=== PATIENT | male | born 1980 | race Two or more races ===

== ENCOUNTER 2020-06-04 17:55 | Inpatient (IN) | payer OTHER ==
--- NOTE | 2020-06-04 21:02 | HP ---
COWS - Scale Resting Pulse: 0= [place] 80 or Below Sweatin=Flushed/Facial Moisture (Increased facial moisture) Restless Observation: 1= Difficult to Sit Still Pupil Size: 2= Moderately Dilated (Pupils = 4 mm) Bone or Joint Aches: 0= None Runny Nose/ Eye Tearin= Nasal Congestion GI Upset > 30mins: 2= Nausea/Diarrhea Tremor Observation: 2= Slight Tremor Visible Yawning Observation: 0= None Anxiety or Irritability: 2=Irritable/Anxious Goose Flesh Skin: 0=Smooth Skin COWS Score: 12 CIWA Score Nausea/Vomitin Muscle Tremors: 4-Moderate,w/Arms Extend Anxiety: 3 Agitation: 3 Paroxysmal Sweats: 3 (Increased facial moisture) Orientation: 0-Oriented Tacttile Disturbances: 0-None Auditory Disturbances: 0-None Visual Disturbances: 0-None Headache: 0-None Present CIWA-Ar Total Score: 16 - Admission Criteria OASAS Guidelines: Admission for Medically Managed Detox: Requires at least one of the followin. CIWA greater than 12 2. Seizures within the past 24 hours 3. Delirium tremens within the past 24 hours 4. Hallucinations within the past 24 hours 5. Acute intervention needed for co occurring medical disorder 6. Acute intervention needed for co occurring psychiatric disorder 7. Severe withdrawal that cannot be handled at a lower level of care (continued vomiting, continued diarrhea, abnormal vital signs) requiring intravenous medication and/or fluids 8. Patient presents the following: CIWA greater than 12 Admission Criteria Met: Admission criteria met Admitting History and Physical - Smoking History Smoking history: Current every day smoker Have you smoked in the past 12 months: Yes Aproximately how many cigarettes per day: 2 Admission ROS S - HPI Chief Complaint: Here because I need detox because I relapsed. I need to stop Allergies/Adverse Reactions: Allergies Allergy/AdvReac Type Severity Reaction Status Date / Time No Known Allergies Allergy Verified 06/04/20 21:14 History of Present Illness: 39 yo here with opioid and alcohol withdrawal symptoms seeking detox. States relapsed on 2 months ago. DONNA: 0.0 UTox: + THC/ESTHER/FLY/MOR/MTD/BZO/BUP Denies hx seizures, overdoses or blackouts. Alcohol use began at age 15. Currently drinking 3- 4 32 oz beers. States re lapsed on 2 months ago. Cocaine use began at age 15. Currently using $40/day. States relapsed on 2 months ago. Benzo use began at age 15. Xanax 4- 2mg sticks/5-6x/week. States relapsed on 2 months ago. Opioid use began at age 15. States 15 -20 bags/day IV. Denies sharing needles or works. Stopped for 18 months and relapsed 2 months ago. States took "a little piece" of Suboxone - 3 days ago. Denies known methadone use. Has a Narcan kit. Marijuana use began at age 15. Uses $20/day. Nicotine use began at age 15. Smokes 10/day. PMHx: DM -resolved x 4 years; Hep C MHHx: Depression. Denies thoughts of harming self or others. Does not see a MH provider. Denies current psychiatric meds. SHx: Undomiciled. Unemployed. Denies legal issues Patient Name: Meliton Omer Date: 1980 Address: [place] [address] Sex: Male Rx Written Rx Dispensed Drug Quantity Days Supply Prescriber Name Payment Method Dispenser 05/26/2020 05/27/2020 lorazepam 2 mg tablet 8 2 Alan Elliott (MIRIAN) Medicaid [facility], [facility] Exam Limitations: No Limitations - Ebola screening Have you traveled outside of the country in the last 21 days: No (Denies known COVID exposure) Have you had contact with anyone from an Ebola affected area: No Have you been sick,other than usual withdrawal symptoms: No Do you have a fever: No - Review of Systems Constitutional: Chills, Diaphoresis, Changes in sleep (Difficulty falling asleep), Weight Stable EENT: reports: Nose Congestion Respiratory: reports: No Symptoms reported Cardiac: reports: No Symptoms Reported GI: reports: Diarrhea (States 2 watery brownish BM's earlier), Nausea : reports: No Symptoms Reported Musculoskeletal: reports: No Symptoms Reported, Joint Pain ((R) knee pain x 2 days. Denies fall or injury) Integumentary: reports: No Symptoms Reported Neuro: reports: No Symptoms reported Endocrine: reports: No Symptoms Reported Hematology: reports: No Symptoms Reported Psychiatric: reports: Judgement Intact, Agitated, Anxious, Depressed ( Denies thoughts of harming self or others.) Patient History - Patient Medical History Hx Asthma: No Hx Chronic Obstructive Pulmonary Disease (COPD): No Hx Cardiac Disorders: No Hx Hypertension: No Hx Seizures: No Hx Diabetes: Yes (Type II) Hx Gastrointestinal Disorders: No Hx Genitourinary Disorders: No Hx Sexually Transmitted Disorders: No Hx Renal Disease (ESRD): No Hx Depression: Yes (on meds) Hx Suicide Attempt: No Hx Schizophrenia: No - Patient Surgical History Past Surgical History: Yes Hx Neurologic Surgery: No Hx Cataract Extraction: No Hx Cardiac Surgery: No Hx Lung Surgery: No Hx Breast Surgery: No Hx Breast Biopsy: No Hx Abdominal Surgery: No Hx Appendectomy: Yes (1993) Hx Cholecystectomy: No Hx Genitourinary Surgery: No Hx Section: No Hx Orthopedic Surgery: No Anesthesia Reaction: No - PPD History Previous Implant?: Yes Documented Results: Negative w/proof Implanted On Prior [facility] Admission?: Yes Date: 05/02/12 PPD to be Administered?: Yes - Smoking Cessation Smoking history: Current every day smoker Have you smoked in the past 12 months: Yes Aproximately how many cigarettes per day: 10 Hx Chewing Tobacco Use: No Initiated information on smoking cessation: Yes 'Breaking Loose' booklet given: 06/04/20 - Substance & Tx. History Hx Alcohol Use: Yes Hx Substance Use: Yes Substance Use Type: Alcohol, Cocaine, Heroin, Marijuana, Opiates Hx Substance Use Treatment: Yes (detox, ) Admission Physical Exam [facility] - Physical General Appearance: Yes: Nourished, Mild Distress, Tremorous, Sweating (Increased facial moisture), Anxious HEENTM: Yes: EOMI, Hearing grossly Normal, Normocephalic, Normal Voice, FER ( Pupils = 4 mm), Pharynx Normal, Nasal Congestion Respiratory: Yes: Lungs Clear (Pulse Ox = 99%), Normal Breath Sounds, No Respiratory Distress Neck: Yes: No masses,lesions,Nodules, Supple Breast: Yes: Breast Exam Deferred Cardiology: Yes: Regular Rhythm, Regular Rate (HR: 66), S1, S2 Abdominal: Yes: Non Tender, Flat, Soft, Increased Bowel Sounds Genitourinary: Yes: Within Normal Limits Back: Yes: Normal Inspection Musculoskeletal: Yes: full range of Motion, Gait Steady, Other (Tenderness (R) knee w/ palpatation. No increased warmth or erythema. FROM.) Extremities: Yes: Normal Capillary Refill, Normal Range of Motion, Tremors Neurological: Yes: windows desktop engineer II-XII NML intact, Fully Oriented, Alert, Motor Strength 5/5, Normal Response Integumentary: Yes: Normal Color, Warm, Moist (Increased facial moisture) Lymphatic: Yes: Within Normal Limits - Diagnostic (1) Alcohol dependence with withdrawal, uncomplicated Current Visit: Yes Status: Acute (2) Opioid dependence with withdrawal Current Visit: Yes Status: Acute (3) Sedative, hypnotic or anxiolytic dependence with withdrawal, uncomplicated Current Visit: Yes Status: Acute (4) Cocaine dependence, uncomplicated Current Visit: Yes Status: Chronic (5) Knee pain, right Current Visit: Yes Status: Acute Qualifiers: Chronicity: acute Qualified Code(s): M25.561 - Pain in right knee (6) History of diabetes mellitus Current Visit: Yes Status: Resolved (7) Nicotine dependence, unspecified, uncomplicated Current Visit: Yes Status: Chronic Qualifiers: Nicotine product type: cigarettes Qualified Code(s): F17.210 - Nicotine dependence, cigarettes, uncomplicated Cleared for Admission [facility] - Detox or Rehab [facility] Level of Care: Medically Managed Detox Regimen/Protocol: Methadone/Valium Claeared for Rehab Admission: No Inpatient Rehab Admission - Rehab Decision to Admit Inpatient rehab admission?: No
[2020-06-04 21:31] VITALS: BMI 25.7
[2020-06-04] MEDS ORDERED: cloNIDine HCL 0.1 MG TABLET PO PRN (21:33)
[2020-06-04] MEDS ORDERED: MAG HYDROX/AL HYDROX/SIMETH 30 ML UNIT-DOSE CUP PO PRN (21:33)
[2020-06-04] MEDS ORDERED: ONDANSETRON *ODT* 4 MG TABLET SL ONE (21:33)
[2020-06-04] MEDS ORDERED: MAGNESIUM CITRATE 300 ML BOTTLE PO PRN (21:33)
[2020-06-04] MEDS ORDERED: METHADONE HCL 10 MG TABLET (FOR DETOX USE ONLY) PO ONE (21:33)
[2020-06-04] MEDS ORDERED: NICOTINE POLACRILEX 2 MG GUM BUC PRN (21:33)
[2020-06-04] MEDS ORDERED: BISMUTH SUBSALICYLATE 524 MG/30 ML UD PO PRN (21:33)
[2020-06-04] MEDS ORDERED: MAGNESIUM HYDROX 2400MG/30ML ORAL SUSPENSION 30 ML CUP PO PRN (21:33)
[2020-06-04] MEDS ORDERED: MENTHOL/PHENOL 1 EACH UD MM PRN (21:33)
[2020-06-04] MEDS ORDERED: ACETAMINOPHEN 325 MG TABLET (FP) PO PRN ×2 (21:33)
[2020-06-04] MEDS: diazePAM 5 MG TABLET PO SCH (22:36)
[2020-06-04] MEDS: MELATONIN 5 MG TABLETS PO SCH (22:37)
[2020-06-04] MEDS: METHOCARBAMOL 500 MG TABLET PO PRN (22:37)
[2020-06-04] MEDS: THIAMINE HCL 100 MG TABLET (FP) PO SCH (22:44)
[2020-06-05] MEDS: diazePAM 5 MG TABLET PO SCH ×3 (05:34→22:39)
--- NOTE | 2020-06-05 09:09 | EKG ---
Test Reason : Blood Pressure : / mmHG Vent. Rate : 057 BPM Atrial Rate : 057 BPM P-R Int : 142 ms QRS Dur : 106 ms QT Int : 412 ms P-R-T Axes : 061 022 007 degrees QTc Int : 401 ms SINUS BRADYCARDIA OTHERWISE NORMAL ECG NO PREVIOUS ECGS AVAILABLE Confirmed by Sin Villagomez MD ([id number]) on 06/05/2020 9:08:59 AM Referred By: Confirmed By:Sin Villagomez MD
[2020-06-05] MEDS ORDERED: METHADONE (DETOX) 20 MG, METHADONE (DETOX) 5 MG PO ONE (10:00)
[2020-06-05] MEDS ORDERED: METHADONE HCL 10 MG TABLET (FOR DETOX USE ONLY) ONE (10:01)
[2020-06-05] MEDS ORDERED: METHADONE HCL 5 MG TABLET (FOR DETOX USE ONLY) ONE (10:02)
[2020-06-05] MEDS: NICOTINE 14 MG/24 HOURS TOPICAL PATCH TD SCH (10:39)
[2020-06-05] MEDS: PRENATAL VITAMINS W/ FOLIC ACID TABLET (FP) PO SCH (10:39)
[2020-06-05] MEDS: METHOCARBAMOL 500 MG TABLET PO PRN ×2 (10:41→22:39)
[2020-06-05] MEDS: IBUPROFEN 400 MG TABLET (FP) PO PRN ×2 (10:41→22:39)
[2020-06-05 13:04] LABS: HEMATOCRIT 41.5 % (35.4-49); MCH 31.4 pg (25.7-33.7); MCHC 33.7 g/dl (32.0-35.9); MEAN CELL VOLUME 93.4 fl (80-96); MEAN PLT VOLUME 10.1 fl (7.5-11.1); PLATELET COUNT 212 K/MM3 (134-434); RBC 4.45 M/mm3 (4.00-5.60); RDW 13.9 % (11.9-15.9); WHITE BLOOD COUNT 7.1 K/mm3 (4.0-10.0)
[2020-06-05 13:08] LABS: ALBUMIN 3.8 g/dl (3.4-5.0); BILIRUBIN,TOTAL 0.6 mg/dL (0.2-1); CALCIUM 8.9 mg/dL (8.5-10.1); POTASSIUM 4.4 mmol/L (3.5-5.1); TOT PROT 7.7 g/dl (6.4-8.2)
--- NOTE | 2020-06-05 15:22 | PN ---
[facility] CIWA - CIWA Score Nausea/Vomitin-No Nausea/No Vomiting Muscle Tremors: 2 Anxiety: 4-Mod. Anxious/Guarded Agitation: 3 Paroxysmal Sweats: 2 Orientation: 0-Oriented Tacttile Disturbances: 0-None Auditory Disturbances: 0-None Visual Disturbances: 0-None Headache: 0-None Present CIWA-Ar Total Score: 11 S COWS - Scale Resting Pulse: 0= [place] 80 or Below Sweatin= No chills or Flushing Restless Observation: 0= Sits Still Pupil Size: 1= Pupils >than Normal Bone or Joint Aches: 1= Mild Discomfort Runny Nose/ Eye Tearin= None GI Upset > 30mins: 2= Nausea/Diarrhea Tremor Observation of Outstretched Hands: 2= Slight Tremor Visible Yawning Observation: 0= None Anxiety or Irritability: 2=Irritable/Anxious Goose Flesh Skin: 3=Piloerection COWS Score: 11 [facility] Progress Note (SOAP) Subjective: 39 years old male was admitted on 06/04/20 for alcohol banzo and opiate withdrawal sx management treating with valium and methadone detox regiment reports trouble sleep at night restlessness at night anxiousness in the dark belsomra 10 mg po x 1 Objective: 06/05/20 15:22 Vital Signs - 24 hr 06/04/20 06/04/20 06/05/20 21:17 22:30 06:20 Temperature 97.1 F L 96.9 F L 97.4 F L Pulse Rate 74 70 73 Respiratory 18 18 16 Rate Blood Pressure 129/73 121/76 99/61 O2 Sat by Pulse 99 97 Oximetry (%) 06/05/20 09:10 Temperature 99.0 F Pulse Rate 58 L Respiratory 16 Rate Blood Pressure 112/59 L O2 Sat by Pulse 97 Oximetry (%) Laboratory Tests 06/05/20 06/05/20 08:30 08:30 WBC 7.1 RBC 4.45 Hgb 14.0 Hct 41.5 MCV 93.4 MCH 31.4 MCHC 33.7 RDW 13.9 Plt Count 212 MPV 10.1 Sodium 143 Potassium 4.4 Chloride 105 Carbon Dioxide 31 Anion Gap 7 L BUN 22.0 H Creatinine 1.0 Est GFR (CKD-EPI)AfAm 108.63 Est GFR (CKD-EPI)NonAf 93.73 Random Glucose 81 Calcium 8.9 Total Bilirubin 0.6 AST 37 ALT 61 Alkaline Phosphatase 68 Total Protein 7.7 Albumin 3.8 covid pending Assessment: 06/05/20 15:23 alcohol benzo opiate withdrawal Plan: valium and methadone regiments
[2020-06-05] MEDS ORDERED: MASKS NR ONE (19:13)
[2020-06-05] MEDS ORDERED: SUVOREXANT 10 MG TABLET PO ONE (22:00)
[2020-06-05] MEDS: THIAMINE HCL 100 MG TABLET (FP) PO SCH (22:39)
[2020-06-05] MEDS: MELATONIN 5 MG TABLETS PO SCH (22:39)
[2020-06-06] MEDS: diazePAM 5 MG TABLET PO SCH ×2 (06:44→17:46)
[2020-06-06] MEDS: METHOCARBAMOL 500 MG TABLET PO PRN ×3 (09:23→23:03)
[2020-06-06] MEDS: diazePAM 5 MG TABLET PO PRN ×2 (09:23→23:04)
[2020-06-06] MEDS: IBUPROFEN 400 MG TABLET (FP) PO PRN ×2 (09:24→23:03)
[2020-06-06] MEDS: NICOTINE 14 MG/24 HOURS TOPICAL PATCH TD SCH (09:24)
[2020-06-06] MEDS: PRENATAL VITAMINS W/ FOLIC ACID TABLET (FP) PO SCH (09:25)
[2020-06-06] MEDS ORDERED: METHADONE HCL 10 MG TABLET (FOR DETOX USE ONLY) PO ONE (10:00)
--- NOTE | 2020-06-06 12:28 | PN ---
[facility] CIWA - CIWA Score Nausea/Vomitin-No Nausea/No Vomiting Muscle Tremors: 3 Anxiety: 2 Agitation: 1-Slight > Activity Paroxysmal Sweats: 1-Minimal Palms Moist Orientation: 0-Oriented Tacttile Disturbances: 0-None Auditory Disturbances: 0-None Visual Disturbances: 0-None Headache: 2-Mild CIWA-Ar Total Score: 9 S COWS - Scale Resting Pulse: 0= [place] 80 or Below Sweatin= Chills/Flushing Restless Observation: 0= Sits Still Pupil Size: 1= Pupils >than Normal Bone or Joint Aches: 1= Mild Discomfort Runny Nose/ Eye Tearin= None GI Upset > 30mins: 2= Nausea/Diarrhea Tremor Observation of Outstretched Hands: 2= Slight Tremor Visible Yawning Observation: 0= None Anxiety or Irritability: 2=Irritable/Anxious Goose Flesh Skin: 0=Smooth Skin COWS Score: 9 S Progress Note (SOAP) Subjective: 39 years old male was admitted on 06/04/20 for alcohol benzo opiate withdrawal sx management treating with valium and methadone detox regiments 6 am valium hold due to low bp encourage mr kuo drinking fluid and ambulating on hallway mr kuo received clonidine around 0930am discontinue clonidine at this time Objective: 06/06/20 12:28 Vital Signs - 24 hr 06/05/20 06/06/20 06/06/20 17:03 05:49 09:22 Temperature 97.1 F L 97.1 F L 97.1 F L Pulse Rate 60 47 L 65 Respiratory 18 20 18 Rate Blood Pressure 111/66 84/46 L 121/77 O2 Sat by Pulse 98 Oximetry (%) Laboratory Tests 06/05/20 06/05/20 06/05/20 04:07 08:30 08:30 WBC 7.1 RBC 4.45 Hgb 14.0 Hct 41.5 MCV 93.4 MCH 31.4 MCHC 33.7 RDW 13.9 Plt Count 212 MPV 10.1 Sodium 143 Potassium 4.4 Chloride 105 Carbon Dioxide 31 Anion Gap 7 L BUN 22.0 H Creatinine 1.0 Est GFR (CKD-EPI)AfAm 108.63 Est GFR (CKD-EPI)NonAf 93.73 Random Glucose 81 Calcium 8.9 Total Bilirubin 0.6 AST 37 ALT 61 Alkaline Phosphatase 68 Total Protein 7.7 Albumin 3.8 Syphilis Serology COVID-19 (LAURA) Not detected 06/05/20 08:30 WBC RBC Hgb Hct MCV MCH MCHC RDW Plt Count MPV Sodium Potassium Chloride Carbon Dioxide Anion Gap BUN Creatinine Est GFR (CKD-EPI)AfAm Est GFR (CKD-EPI)NonAf Random Glucose Calcium Total Bilirubin AST ALT Alkaline Phosphatase Total Protein Albumin Syphilis Serology Non-reactive COVID-19 (LAURA) covid pending Assessment: 06/06/20 12:29 alcohol benzo opiate withdrawal Plan: valium and methadone regiments
[2020-06-06] MEDS: MELATONIN 5 MG TABLETS PO SCH (23:04)
[2020-06-06] MEDS: THIAMINE HCL 100 MG TABLET (FP) PO SCH (23:04)
[2020-06-07] MEDS ORDERED: diazePAM 5 MG TABLET PO ONE (06:00)
[2020-06-07] MEDS ORDERED: METHADONE HCL 5 MG TABLET (FOR DETOX USE ONLY) ONE (09:15)
[2020-06-07] MEDS ORDERED: METHADONE HCL 10 MG TABLET (FOR DETOX USE ONLY) ONE (09:15)
[2020-06-07] MEDS: diazePAM 5 MG TABLET PO PRN ×2 (09:35→18:43)
[2020-06-07] MEDS: NICOTINE 14 MG/24 HOURS TOPICAL PATCH TD SCH (09:36)
[2020-06-07] MEDS: PRENATAL VITAMINS W/ FOLIC ACID TABLET (FP) PO SCH (09:36)
[2020-06-07] MEDS ORDERED: METHADONE (DETOX) 10 MG, METHADONE (DETOX) 5 MG PO ONE (10:00)
--- NOTE | 2020-06-07 11:44 | PN ---
S CIWA - CIWA Score Nausea/Vomitin-Mild Nausea/No Vomiting Muscle Tremors: 1-None Visible, but Stanley Anxiety: 3 Agitation: 0-Normal Activity Paroxysmal Sweats: No Perspiration Orientation: 0-Oriented Tacttile Disturbances: 0-None Auditory Disturbances: 0-None Visual Disturbances: 1-Very Mild Sensitivity Headache: 0-None Present CIWA-Ar Total Score: 6 [facility] COWS - Scale Resting Pulse: 0= [place] 80 or Below Sweatin= Chills/Flushing Restless Observation: 0= Sits Still Pupil Size: 1= Pupils >than Normal Bone or Joint Aches: 1= Mild Discomfort Runny Nose/ Eye Tearin= None GI Upset > 30mins: 1= Stomach Cramp Tremor Observation of Outstretched Hands: 1= Tremor Stanley, Not Seen Yawning Observation: 0= None Anxiety or Irritability: 1=Feels Anxious/Irritable Goose Flesh Skin: 0=Smooth Skin COWS Score: 6 S Progress Note (SOAP) Subjective: 39 years old male was admitted on 06/04/20 for alcohol benzo opiate withdrawal sx management treating with valium and methaodne regiments feels ok today discussing medication assisted treatment program for opiate abuse treatment mr kuo prefers to go to [facility] for aftercare Objective: 06/07/20 11:42 Vital Signs - 24 hr 06/06/20 06/06/20 06/06/20 12:31 16:37 20:35 Temperature 98.8 F 97.3 F L 97.1 F L Pulse Rate 72 59 L 56 L Respiratory 18 17 18 Rate Blood Pressure 109/66 112/57 L 112/66 O2 Sat by Pulse 98 98 Oximetry (%) 06/07/20 06/07/20 06:44 08:30 Temperature 97.6 F 98.8 F Pulse Rate 59 L 62 Respiratory 18 18 Rate Blood Pressure 105/51 L 124/68 O2 Sat by Pulse 97 Oximetry (%) Laboratory Tests 06/05/20 06/05/20 06/05/20 04:07 08:30 08:30 WBC 7.1 RBC 4.45 Hgb 14.0 Hct 41.5 MCV 93.4 MCH 31.4 MCHC 33.7 RDW 13.9 Plt Count 212 MPV 10.1 Sodium 143 Potassium 4.4 Chloride 105 Carbon Dioxide 31 Anion Gap 7 L BUN 22.0 H Creatinine 1.0 Est GFR (CKD-EPI)AfAm 108.63 Est GFR (CKD-EPI)NonAf 93.73 POC Glucometer Random Glucose 81 Calcium 8.9 Total Bilirubin 0.6 AST 37 ALT 61 Alkaline Phosphatase 68 Total Protein 7.7 Albumin 3.8 Syphilis Serology COVID-19 (LAURA) Not detected 06/05/20 06/06/20 08:30 16:47 WBC RBC Hgb Hct MCV MCH MCHC RDW Plt Count MPV Sodium Potassium Chloride Carbon Dioxide Anion Gap BUN Creatinine Est GFR (CKD-EPI)AfAm Est GFR (CKD-EPI)NonAf POC Glucometer 96 Random Glucose Calcium Total Bilirubin AST ALT Alkaline Phosphatase Total Protein Albumin Syphilis Serology Non-reactive COVID-19 (LAURA) bun elevation due to lack of oral hydration upon admission mr kuo tolerates oral fluid well throughout the detox treatment Assessment: 06/07/20 11:43 alcohol benzo opiate withdrawal Plan: valium and methadone regiment
[2020-06-07] MEDS: IBUPROFEN 400 MG TABLET (FP) PO PRN (13:39)
[2020-06-07] MEDS: METHOCARBAMOL 500 MG TABLET PO PRN ×2 (13:40→22:44)
[2020-06-07] MEDS: MELATONIN 5 MG TABLETS PO SCH (22:44)
[2020-06-07] MEDS: THIAMINE HCL 100 MG TABLET (FP) PO SCH (22:44)
[2020-06-08] MEDS ORDERED: METHADONE HCL 10 MG TABLET (FOR DETOX USE ONLY) PO ONE (10:00)
[2020-06-08] MEDS: NICOTINE 14 MG/24 HOURS TOPICAL PATCH TD SCH (10:11)
[2020-06-08] MEDS: PRENATAL VITAMINS W/ FOLIC ACID TABLET (FP) PO SCH (10:11)
[2020-06-08] MEDS: METHOCARBAMOL 500 MG TABLET PO PRN (10:11)
--- NOTE | 2020-06-08 10:24 | CONSULT ---
[facility] Psychiatric Consult - Data Date of interview: 06/08/20 Admission source: [facility] Identifying data: Revisit to [facility] and admission to [address] [place] [address] for this 39 y/o [place] male self-referred for detoxification treatment. SPARKLE issues : alcohol, heroin, cannabis, cocaine, nicotine. Patient is single, no dependents, homeless (came from [facility] three weeks ago), unemployed and supported on welfare. Substance Abuse History: Discussed with the patient. SPARKLE profile as follows : onset of benzodiazepine abuse (xanax) + alcohol abuse (beer) + cocaine at age 15. Has been sober for past two years. Relapsed two months ago (self-report). Mr Omer endorses concomitant use of heroin (intravenous route) on a daily basis (15-20 bags). Dropped out of suboxone therapy. Marijuana use began also at age 15 (spends $20/day). Nicotine use began at age 15. Smokes 10/day. Smoking history: Current every day smoker. Have you smoked in the past 12 months: Yes. Approximately how many cigarettes per day: 10. Hx Chewing Tobacco Use: No. Initiated information on smoking cessation: Yes. 'Breaking Loose' booklet given: 06/04/20. Substance & Tx. History. Hx Alcohol Use: Yes. Hx Substance Use: Yes. Substance Use Type: Alcohol, Cocaine, Heroin, Marijuana, Opiates. Hx Substance Use Treatment: Yes (detox). History of multiple SPARKLE treatment failures. Medical History: Medical profile is remarkable for hepatitis C, diabetes m ellitus and history of appendectomy. Psychiatric History: Patient endorses history of multiple psychiatric hospitalizations (at facilities in [facility]). None in the [place]. Reportedly diagnosed with MDD. Mr Omer has been prescribed seroquel 50 mg/hs + zoloft 50 mg/day + restoril (dose not recalled). He has no connection with psychiatric OPD care providers in this country (just came to [facility] three weeks ago). Patient denies history of suicide attempts. Physical/Sexual Abuse/Trauma History: Patient denies. Additional Comment: Toxicology is positive for cannabinoids, cocaine, benzodiazepine and opiates. Mental Status Exam - Mental Status Exam Alert and Oriented to: Time, Place, Person Cognitive Function: Good Patient Appearance: Well Groomed (tattoos on both upper extremities) Mood: Anxious, Hopeful Affect: Appropriate, Normal Range Patient Behavior: Fatigued, Appropriate, Cooperative Speech Pattern: Clear (bilingual), Appropriate Voice Loudness: Normal Thought Process: Goal Oriented Thought Disorder: Not Present Hallucinations: Denies Suicidal Ideation: Denies Homicidal Ideation: Denies Insight/Judgement: Poor Sleep: Poorly, Difficulty falling asleep Appetite: Good Gait/Station: Normal Psychiatric Findings - Problem List ([place] 1, 2,3) (1) Alcohol dependence with withdrawal, uncomplicated Current Visit: Yes Status: Acute (2) Opioid dependence with withdrawal Current Visit: Yes Status: Acute (3) Sedative, hypnotic or anxiolytic dependence with withdrawal, uncomplicated Current Visit: Yes Status: Acute (4) Cocaine dependence, uncomplicated Current Visit: Yes Status: Chronic (5) Nicotine dependence, unspecified, uncomplicated Current Visit: Yes Status: Chronic Qualifiers: Nicotine product type: cigarettes Qualified Code(s): F17.210 - Nicotine dependence, cigarettes, uncomplicated (6) Substance induced mood disorder Current Visit: Yes Status: Chronic (7) History of depression Current Visit: Yes Status: Chronic (8) Insomnia Current Visit: Yes Status: Chronic (9) Non-compliance Current Visit: Yes Status: Chronic - Initial Treatment Plan Initial Treatment Plan: Psychoeducation. Sleep hygiene. Support. Detoxification in progress. Medications resumed at patient's request : zoloft 50 mg po daily + seroquel 50 mg po hs. Insomnia is addressed with belsomra 10 mg po hs prn. Side effects/benefits of these medications are discussed with the patient. Mr Omer grants consent (verbal) to MD. Jung.
--- NOTE | 2020-06-08 10:56 | PN ---
[facility] CIWA - CIWA Score Nausea/Vomitin-No Nausea/No Vomiting Muscle Tremors: None Anxiety: 2 Agitation: 0-Normal Activity Paroxysmal Sweats: 2 Orientation: 0-Oriented Tacttile Disturbances: 0-None Auditory Disturbances: 0-None Visual Disturbances: 0-None Headache: 0-None Present CIWA-Ar Total Score: 4 [facility] COWS - Scale Resting Pulse: 0= [place] 80 or Below Sweatin= No chills or Flushing Restless Observation: 0= Sits Still Pupil Size: 0= Normal to Room Light Bone or Joint Aches: 1= Mild Discomfort Runny Nose/ Eye Tearin= None GI Upset > 30mins: 0= None Tremor Observation of Outstretched Hands: 0= None Yawning Observation: 0= None Anxiety or Irritability: 2=Irritable/Anxious Goose Flesh Skin: 0=Smooth Skin COWS Score: 3 [facility] Progress Note (SOAP) Subjective: c/o mild withdrawal symptoms. Objective: 06/08/20 10:55 Vital Signs 06/08/20 06/08/20 06:59 08:42 Temperature 97.1 F L 97.8 F Pulse Rate 60 64 Respiratory 18 16 Rate Blood Pressure 104/62 119/72 O2 Sat by Pulse 100 Oximetry (%) Laboratory Last Values WBC 7.1 K/mm3 (4.0-10.0) 06/05/20 08:30 RBC 4.45 M/mm3 (4.00-5.60) 06/05/20 08:30 Hgb 14.0 GM/dL (11.7-16.9) 06/05/20 08:30 Hct 41.5 % (35.4-49) 06/05/20 08:30 MCV 93.4 fl (80-96) 06/05/20 08:30 MCH 31.4 pg (25.7-33.7) 06/05/20 08:30 MCHC 33.7 g/dl (32.0-35.9) 06/05/20 08:30 RDW 13.9 % (11.9-15.9) 06/05/20 08:30 Plt Count 212 K/MM3 (134-434) 06/05/20 08:30 MPV 10.1 fl (7.5-11.1) 06/05/20 08:30 Sodium 143 mmol/L (136-145) 06/05/20 08:30 Potassium 4.4 mmol/L (3.5-5.1) 06/05/20 08:30 Chloride 105 mmol/L (98-107) 06/05/20 08:30 Carbon Dioxide 31 mmol/L (21-32) 06/05/20 08:30 Anion Gap 7 MMOL/L (8-16) L 06/05/20 08:30 BUN 22.0 mg/dL (7-18) H 06/05/20 08:30 Creatinine 1.0 mg/dL (0.55-1.3) 06/05/20 08:30 Est GFR (CKD-EPI)AfAm 108.63 06/05/20 08:30 Est GFR (CKD-EPI)NonAf 93.73 06/05/20 08:30 POC Glucometer 96 UNITS (80-120) 06/06/20 16:47 Random Glucose 81 mg/dL (74-106) 06/05/20 08:30 Calcium 8.9 mg/dL (8.5-10.1) 06/05/20 08:30 Total Bilirubin 0.6 mg/dL (0.2-1) 06/05/20 08:30 AST 37 U/L (15-37) 06/05/20 08:30 ALT 61 U/L (13-61) 06/05/20 08:30 Alkaline Phosphatase 68 U/L (45-117) 06/05/20 08:30 Total Protein 7.7 g/dl (6.4-8.2) 06/05/20 08:30 Albumin 3.8 g/dl (3.4-5.0) 06/05/20 08:30 Syphilis Serology Non-reactive (NONREACTIVE) 06/05/20 08:30 COVID-19 ([facility]URA) Not detected (Not Detected) 06/05/20 04:07 Labs noted. Assessment: 06/08/20 10:55 AOX3, in no acute respiratory distress. Full ROM, ambulating in the unit. Mild Withdrawal symptoms. For d/c tomorrow. Plan: continue detox. D/C in AM.
[2020-06-08] MEDS ORDERED: SUVOREXANT 10 MG TABLET PO PRN (22:00)
[2020-06-08] MEDS ORDERED: QUEtiapine FUMARATE 50 MG TABLET PO SCH (22:00)
[2020-06-08] MEDS: MELATONIN 5 MG TABLETS PO SCH (22:25)
[2020-06-08] MEDS: THIAMINE HCL 100 MG TABLET (FP) PO SCH (22:25)
[2020-06-09] MEDS ORDERED: METHADONE HCL 5 MG TABLET (FOR DETOX USE ONLY) PO ONE (06:00)
[2020-06-09 06:47] VITALS: BP 98/54; PULSE 61; TEMP 97.6
[2020-06-09] MEDS ORDERED: SERTRALINE HCL 50 MG TABLET (FP) PO SCH (10:00)
--- NOTE | 2020-06-09 12:46 | DS ---
[facility] Detox Discharge Summary Admission Date: 06/04/20 Discharge Date: 06/09/20 - History Present History: Alcohol Dependence, Cannabis Dependence, Cocaine Dependence, Opioid Dependence Additional Comments: Pt is medically cleared and discharged today. Pt completed the detox protocol. Pt is encouraged to follow-up with an outpatient CD program and also to follow- up with his pmd which he verbalized understanding. Pt is AOX3, in no acute respiratory distress, Full ROM, and ambulatory. Pertinent Past History: h/o alcohol, cocaine, heroin, and cannabis use disorder. - Physical Exam Results Vital Signs: Vital Signs Temperature 97.6 F 06/09/20 06:46 Pulse Rate 61 06/09/20 06:46 Respiratory Rate 18 06/09/20 06:46 Blood Pressure 98/54 L 06/09/20 06:46 O2 Sat by Pulse Oximetry (%) 99 06/09/20 06:46 Vital Signs 06/09/20 06:46 Temperature 97.6 F Pulse Rate 61 Respiratory 18 Rate Blood Pressure 98/54 L O2 Sat by Pulse 99 Oximetry (%) Laboratory Last Values WBC 7.1 K/mm3 (4.0-10.0) 06/05/20 08:30 RBC 4.45 M/mm3 (4.00-5.60) 06/05/20 08:30 Hgb 14.0 GM/dL (11.7-16.9) 06/05/20 08:30 Hct 41.5 % (35.4-49) 06/05/20 08:30 MCV 93.4 fl (80-96) 06/05/20 08:30 MCH 31.4 pg (25.7-33.7) 06/05/20 08:30 MCHC 33.7 g/dl (32.0-35.9) 06/05/20 08:30 RDW 13.9 % (11.9-15.9) 06/05/20 08:30 Plt Count 212 K/MM3 (134-434) 06/05/20 08:30 MPV 10.1 fl (7.5-11.1) 06/05/20 08:30 Sodium 143 mmol/L (136-145) 06/05/20 08:30 Potassium 4.4 mmol/L (3.5-5.1) 06/05/20 08:30 Chloride 105 mmol/L (98-107) 06/05/20 08:30 Carbon Dioxide 31 mmol/L (21-32) 06/05/20 08:30 Anion Gap 7 MMOL/L (8-16) L 06/05/20 08:30 BUN 22.0 mg/dL (7-18) H 06/05/20 08:30 Creatinine 1.0 mg/dL (0.55-1.3) 06/05/20 08:30 Est GFR (CKD-EPI)AfAm 108.63 06/05/20 08:30 Est GFR (CKD-EPI)NonAf 93.73 06/05/20 08:30 POC Glucometer 96 UNITS (80-120) 06/06/20 16:47 Random Glucose 81 mg/dL (74-106) 06/05/20 08:30 Calcium 8.9 mg/dL (8.5-10.1) 06/05/20 08:30 Total Bilirubin 0.6 mg/dL (0.2-1) 06/05/20 08:30 AST 37 U/L (15-37) 06/05/20 08:30 ALT 61 U/L (13-61) 06/05/20 08:30 Alkaline Phosphatase 68 U/L (45-117) 06/05/20 08:30 Total Protein 7.7 g/dl (6.4-8.2) 06/05/20 08:30 Albumin 3.8 g/dl (3.4-5.0) 06/05/20 08:30 Syphilis Serology Non-reactive (NONREACTIVE) 06/05/20 08:30 COVID-19 ([facility]) Not detected (Not Detected) 06/05/20 04:07 Labs noted. Pertinent Admission Physical Exam Findings: withdrawal symptoms. - Treatment Hospital Course: Detox Protocol Followed, Detoxed Safely, Responded well, Discharged Condition Good - Medication Discharge Medications: Ambulatory Orders Methocarbamol [Robaxin-750] 750 mg PO Q6H PRN 04/30/12 Quetiapine Fumarate [Seroquel] 50 mg PO HS 04/30/12 Sertraline HCl [Zoloft] 50 mg PO DAILY 04/30/12 Trazodone HCl 50 mg PO HS 04/30/12 metFORMIN HCL [Glucophage] 500 mg PO DAILY 04/30/12 Quetiapine Fumarate [Seroquel -] 50 mg PO HS #30 tablet 06/08/20 Sertraline HCl [Zoloft -] 50 mg PO DAILY #30 tablet 06/08/20 - Diagnosis (1) Opioid dependence Status: Acute (2) Alcohol dependence with withdrawal, uncomplicated Status: Acute (3) Opioid dependence with withdrawal Status: Acute (4) Cocaine dependence, uncomplicated Status: Chronic (5) Nicotine dependence, unspecified, uncomplicated Status: Chronic Qualifiers: Nicotine product type: cigarettes Qualified Code(s): F17.210 - Nicotine dependence, cigarettes, uncomplicated - AMA Did Patient Leave Against Medical Advice: No
== END 2020-06-09 08:52 | disposition home or self-care (01) | DRG 773 ==
LOC: YASAS 17:55 → Y3N 21:46
PROVIDERS: ADMIT Allergy & Immunology; ATTEND Allergy & Immunology
PROC: HZ2ZZZZ Detoxification Services for Substance Abuse Treatment (ICD-10-PCS; principal; 2020-06-04)
DX: F10.230 Alcohol dependence with withdrawal, uncomplicated (principal); F11.23 Opioid dependence with withdrawal; F13.230 Sedative, hypnotic or anxiolytic dependence with withdrawal, uncomplicated; F14.20 Cocaine dependence, uncomplicated; F12.20 Cannabis dependence, uncomplicated; F17.210 Nicotine dependence, cigarettes, uncomplicated; F19.24 Other psychoactive substance dependence with psychoactive substance-induced mood disorder; F32.9 Major depressive disorder, single episode, unspecified; B18.2 Chronic viral hepatitis C; M25.561 Pain in right knee; Z86.39 Personal history of other endocrine, nutritional and metabolic disease; Z90.49 Acquired absence of other specified parts of digestive tract; Z56.0 Unemployment, unspecified; Z59.0 Homelessness; Z91.19 Patient's noncompliance with other medical treatment and regimen
CPT/HCPCS: 36415; 80053; 82962; 85027; 86780; 93005; 93010; J0735; Q0162; U0003